=== PATIENT | male | born 1995 | race Caucasian/White ===

== ENCOUNTER 2021-02-21 08:08 | Emergency (ER) | payer BC, SELFPAY ==
[2021-02-21 08:22] LABS: Bilirubin Negative (Negative); Blood Large (Negative); Clarity Clear (Clear); Glucose Negative (Negative); Ketones Negative (Negative); Leukocyte Esterase Moderate (Negative); Nitrite Negative (Negative); Urobilinogen 0.2 EU/dL (Up TO 0.2); pH 6.5 (5-8)
--- NOTE | 2021-02-21 08:35 | ED.GENADUL_ITS ---
Discharge Plan Disposition Patient Disposition: HOME Condition: Stable Discharge Details Clinical Impression: Acute UTI Primary Care Provider: Mi Jensen ED Provider: Brittany Giordano Home Meds and New Rx's Prescriptions: New sulfamethoxazole-trimethoprim [Bactrim DS] 800-160 mg tablet 1 tab PO BID Qty: 14 RF: 0 Discharge Instructions Instructions: Urinary Tract Infection in Men (ED) Additional Instructions: Take antibiotic as prescribed yogurt daily while on antibiotic follow-up with urology return with fever, chills, or any new or progressing complaints see your pcp in 2-3 days Referrals: Mi Jensen, DESTINI [Primary Care Provider] - Shun Contreras MD [ [facility] STAFF PHYSICIAN] - Medical Decision Making Patient appears well, he denies any perineal pain or flank pain He is afebrile and nontoxic with stable vitals He has an obvious urinary tract infection, he is sexually active and monogamous no declines STD treatment, pending STD urinalysis at this time This was a clean-catch urine, however after investigating further it sounds like a clean-catch urinalysis positive, only 3 left than 3% sensitivity and specificity from a nonclean-catch urine specimen so we will use this for evaluation Started on Bactrim for 7 days Referral to urology as urinary tract infection in a 25-year-old male a slightly unusual He will need close outpatient reassessment He is given low threshold to return should he have pain, fever, chills, or with any new or worsening complaints He is discharged home in stable condition with stable vitals pending urine culture Medical Records Medical records reviewed: Yes I reviewed the patient's medical records. Lab Data Lab results reviewed: Yes I reviewed the patient's lab results. HPI General Mode of arrival: ambulatory . Date/Time Provider Initiated Documentation: 02/21/21 08:13 . Limitations to Documentation: no limitations . Information obtained by: patient . HPI Narrative: This 25-year-old male presents with dysuria consisting of burning with urination since last evening. Has had some intermittent deep drainage from his urethra. Sexually active and monogamous with . States has blood in his urine morning with discomfort upon urination at 6 AM. Denies any fever or chills. Having intermittent diarrhea over the course of the past week. Denies any chest pain, shortness of breath, dizziness, weakness. Denies cough or abdominal pain. Related Data Home Medications Medication Instructions Recorded Confirmed sulfamethoxazole-trimethoprim 1 tab PO BID #14 tab 02/21/21 [Bactrim DS] Previous Rx's Medication Instructions Recorded sulfamethoxazole-trimethoprim 1 tab PO BID #14 tab 02/21/21 [Bactrim DS] Allergies Allergy/AdvReac Type Severity Reaction Status Date / Time cat dander Allergy Swelling/Ed Unverified 02/21/21 08:41 daniel dog dander Allergy Swelling/Ed Unverified 02/21/21 08:41 daniel Review of Systems All systems reviewed & are unremarkable except as noted in HPI and below PFSH Medical History GERD (gastroesophageal reflux disease) Major depressive disorder Surgical History No significant past surgical history Family History Mother No problems noted. Father Diabetes Brother No problems noted. Brother No problems noted. Son No problems noted. Maternal Grandfather No problems noted. Maternal Grandmother Diabetes Paternal Grandfather Alcohol abuse Liver disease Paternal Grandmother No problems noted. Social History Smoking/Tobacco Use Status: Never Smoking risk assessment performed?: Yes Alcohol Intake: current Alcohol type: beer Drug use: Occasionally Substance use type: marijuana Counseling given: No Caregiver/Support person: No Household members: spouse and children Communication Needs: None Do you need help understanding health information?: Never Pets and animals: Yes Pets and animals: cat(s) and dog(s) Exam Const General: cooperative and comfortable Orientation: alert and oriented x3 Eyes Sclera: sclerae normal Resp Effort & Inspection: normal respiratory effort Auscultation: clear to auscultation bilaterally Cardio Rate: regular rate Rhythm: regular rhythm GI Inspection: normal to inspection Other: Nontender, no CVA tenderness Other: No rashes or lesions Skin General skin exam: no rashes or lesions noted Neuro General: patient alert and patient oriented x3
[2021-02-21 08:39] VITALS: BP 132/77; PULSE 76; RESP 16; TEMP 36.3; O2SAT 99
[2021-02-21 09:06] LABS: Bacteria Rare HPF (Negative); C & S Indicated? Yes; Casts Negative LPF (Negative); Crystals Negative HPF (Negative); Epithelial Cells Rare HPF (Negative); Mucus Negative (Negative); RBC >50 HPF (0-2); WBC >50 HPF (0-5)
[2021-02-22 15:21] LABS: Chlamydia Result Negative (Negative); GC Result Negative (Negative)
== END 2021-02-21 09:36 | disposition home or self-care (01) ==
PROVIDERS: Emergency Provider Physician Assistant; PCP Nurse Practitioner Family
DX: N39.0 Urinary tract infection, site not specified (principal); B96.89 Other specified bacterial agents as the cause of diseases classified elsewhere
CPT/HCPCS: 87491; 87591; 99283; 81003; 81015; 87086